=== PATIENT | male | born 1950 | race American Indian/Alaskan Native ===

== ENCOUNTER 2018-12-12 18:19 | Emergency (ER) | payer MEDICARE ==
[2018-12-12] MEDS ORDERED: TYLENOL #3 PO ONE (21:48)
--- NOTE | 2018-12-12 21:48 | Emergency Department Report ---
ED Eye Problem HPI - General Chief complaint: Eye Problems Stated complaint: EYE PAIN Time Seen by Provider: 12/12/18 21:30 Source: patient Mode of arrival: Ambulatory Limitations: No Limitations - History of Present Illness Initial comments: Pt is a 68 yo male who presents to the ED with c/o swelling, rash, and pain to the left forehead, eye, and left cheek that began yesterday. He states his vision is intact but has photophobia. He states he has clear drainage from the left eye. He was seen by a "minute clinic" and advised to be evaluated in the E D. The patient states he did get a shingles vaccine about two years ago. - Related Data Previous Rx's Medication Instructions Recorded Last Taken Type Acetaminophen/Codeine [Tylenol 1 tab PO Q6H PRN #14 tab 12/12/18 Unknown Rx /Codeine # 3 tab] Acyclovir 800 mg PO 5XD 10 Days #50 tablet 12/12/18 Unknown Rx Ibuprofen 600 mg PO Q6HR #30 tablet 12/12/18 Unknown Rx Prednisolone Acetate/Pf 5 ml OS TID 5 Days #1 bottle 12/12/18 Unknown Rx [Prednisolone Acet 1% Eye Drop] predniSONE [Prednisone] 50 mg PO DAILY 5 Days #5 tablet 12/12/18 Unknown Rx Allergies Allergy/AdvReac Type Severity Reaction Status Date / Time No Known Allergies Allergy Unverified 12/12/18 18:21 ED Review of Systems ROS: Stated complaint: EYE PAIN Other details as noted in HPI Comment: All other systems reviewed and negative ED Past Medical Hx - Past Medical History Hx Diabetes: Yes - Surgical History Past Surgical History?: No - Social History Smoking Status: Current Every Day Smoker Substance Use Type: None - Medications Home Medications: Home Medications Medication Instructions Recorded Confirmed Last Taken Type Acetaminophen/Codeine [Tylenol 1 tab PO Q6H PRN #14 tab 12/12/18 Unknown Rx /Codeine # 3 tab] Acyclovir 800 mg PO 5XD 10 Days #50 tablet 12/12/18 Unknown Rx Ibuprofen 600 mg PO Q6HR #30 tablet 12/12/18 Unknown Rx Prednisolone Acetate/Pf 5 ml OS TID 5 Days #1 bottle 12/12/18 Unknown Rx [Prednisolone Acet 1% Eye Drop] predniSONE [Prednisone] 50 mg PO DAILY 5 Days #5 tablet 12/12/18 Unknown Rx ED Physical Exam - General Limitations: No Limitations General appearance: alert, in no apparent distress - Head Head exam: Present: other (vesicles and erythema present on the left forehead, left nose, and surrounding the left eye) - Eye Eye exam: Present: normal appearance, PERRL, EOMI Pupils: Present: normal accommodation - ENT ENT exam: Present: mucous membranes moist - Neurological Exam Neurological exam: Present: alert, oriented X3 - Psychiatric Psychiatric exam: Present: normal affect, normal mood - Skin Skin exam: Present: warm, dry, intact ED Course Vital Signs 12/12/18 18:27 Temperature 98 F Pulse Rate 65 Respiratory 18 Rate Blood Pressure 182/85 O2 Sat by Pulse 98 Oximetry ED Medical Decision Making - Medical Decision Making Pt is a 68 yo male who presents to the ED with c/o swelling, rash, and pain to the left forehead, eye, and left cheek that began yesterday. He states his vision is intact but has photophobia. He states he has clear drainage from the left eye. He was seen by a "minute clinic" and advised to be evaluated in the ED. The patient states he did get a shingles vaccine about two years ago. 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 Will give pt steroids, acyclovir, something for pain, and steroid eye drops. Advised pt to be seen by ophthalmology tomorrow (12/13/18) to prevent blindness. Discussed with daughter and patient the seriousness of potential diagnosis and they verbalized understanding and said they would see the railroad crane operator as soon as possible. Discussed with pt to return to the ED for any new or worsening symptoms. Critical care attestation.: If time is entered above; I have spent that time in minutes in the direct care of this critically ill patient, excluding procedure time. ED Disposition Clinical Impression: Zoster ophthalmicus Disposition: DC-01 TO HOME OR SELFCARE Is pt being admited?: No Does the pt Need Aspirin: No Condition: Stable Instructions: Herpes Zoster (ED) Additional Instructions: Follow up with the railroad crane operator tomorrow morning (12/13/18). Use all medication as prescribed. Return to the emergency room for any new or worsening symptoms. Follow up with your primary care doctor in the next 2 days due to elevated blood pressure. Prescriptions: Acyclovir 800 mg PO 5XD 10 Days #50 tablet Ibuprofen 600 mg PO Q6HR #30 tablet Prednisolone Acetate/Pf [Prednisolone Acet 1% Eye Drop] 5 ml OS TID 5 Days #1 bottle predniSONE [Prednisone] 50 mg PO DAILY 5 Days #5 tablet Acetaminophen/Codeine [Tylenol /Codeine # 3 tab] 1 tab PO Q6H PRN #14 tab PRN Reason: Pain , Severe (7-10) Referrals: YISSEL MONTEZ MD [Primary Care Provider] - 2-3 Days ALICE EMERSON MD [Staff Physician] - 24 Hours Time of Disposition: 22:15 Print Language: LUXEMBOURGISH
[2018-12-13 06:38] VITALS: BP 188/65
== END 2018-12-12 22:05 | disposition home or self-care (01) ==
LOC: ED 18:19
DX: B02.30 Zoster ocular disease, unspecified (principal); E11.9 Type 2 diabetes mellitus without complications; F17.200 Nicotine dependence, unspecified, uncomplicated
CPT/HCPCS: 99282

== ENCOUNTER 2019-02-15 21:34 | Emergency (ER) | payer MEDICARE ==
[2019-02-15] MEDS ORDERED: D50W (25GM) Syringe IV ONE (21:57)
[2019-02-15 22:10] LABS: Hematocrit 33.5 % (35.5-45.6); Hemoglobin 11.5 gm/dl (11.8-15.2); Mean Corpuscular HGB Conc 34 % (32-34); Mean Corpuscular Volume 108 fl (84-94); Red Blood Count 3.11 M/mm3 (3.65-5.03); Red Cell Distribution Width 15.1 % (13.2-15.2)
[2019-02-15 22:11] LABS: Platelet Count 167 K/mm3 (140-440)
[2019-02-15 22:41] LABS: Alanine Aminotransferase 27 units/L (7-56); Albumin 3.3 g/dL (3.9-5); BUN/Creatinine Ratio 10; Blood Urea Nitrogen 12 mg/dL (9-20); Calcium 8.5 mg/dL (8.4-10.2); Hemolysis Index 52
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
[2019-02-16 01:21] VITALS: BP 141/64
== END 2019-02-16 01:00 | disposition home or self-care (01) ==
LOC: ED 21:34
DX: S09.90XA Unspecified injury of head, initial encounter (principal); E11.649 Type 2 diabetes mellitus with hypoglycemia without coma; I10 Essential (primary) hypertension; F17.200 Nicotine dependence, unspecified, uncomplicated; V47.5XXA Car driver injured in collision with fixed or stationary object in traffic accident, initial encounter; Y93.89 Activity, other specified; Y92.410 Unspecified street and highway as the place of occurrence of the external cause; Y99.8 Other external cause status
CPT/HCPCS: 36415; 70450; 80053; 82962; 85027; 96374